=== PATIENT | female | born 1975 | race American Indian/Alaskan Native ===

== ENCOUNTER 2017-02-01 08:32 | Outpatient (CLI) | payer MEDICAID ==
--- NOTE | 2017-02-01 14:48 | Ultrasound Report ---
ULTRASOUND PELVIS COMPLETE - TRANSABDOMINAL AND TRANSVAGINAL: INDICATION: Leiomyoma of uterus unspecified. COMPARISON: None similar. FINDINGS: Transabdominal and transvaginal pelvic sonography performed in this patient with LMP of 01/13/2017 demonstrates a 10.4 x 6.5 x 8.3 cm retroverted, inhomogenous uterus with an approximately 2.2 x 2.5 x 3.1 cm fibroid superiorly on the right. Endometrial thickness of 0.8 cm, endovaginal image 11. Small nabothian cysts. Minimal free fluid. Unremarkable right ovary measuring 3 x 2.3 x 2.1 cm. Left ovary is 3 x 2.5 x 2.1 cm with a 2 cm slight thick walled cyst, possibly the corpus luteum. CONCLUSION: Retroverted uterus with an approximately 3 cm fibroid identified, as described. Thank you for the opportunity to participate in this patient's care.
--- NOTE | 2017-02-01 15:47 | Mammography Report ---
BILATERAL DIGITAL SCREENING MAMMOGRAM with CAD: 02/01/17 08:32:00 CLINICAL: Routine screening. COMPARISON: None available. FINDINGS: The breasts are entirely fatty with a few bilateral scattered areas of fibroglandular density.No mass, architectural distortion or suspicious calcifications. IMPRESSION: No mammographic evidence of malignancy. BI-RADS CATEGORY: 1 -- Negative RECOMMENDATION: Routine mammographic screening in one year. COMMENT: Patient follow-up letters are generated by our [email or web address] application.
== END 2017-02-01 08:33 | disposition home or self-care (01) ==
LOC: US 08:32
PROVIDERS: ATTEND Obstetrics & Gynecology Gynecology
DX: Z12.31 Encounter for screening mammogram for malignant neoplasm of breast (principal); D25.9 Leiomyoma of uterus, unspecified; N85.4 Malposition of uterus; N83.202 Unspecified ovarian cyst, left side
CPT/HCPCS: 76830; 76856; G0202; 77067